=== PATIENT | female | born 1995 | race Asian ===

== ENCOUNTER 2017-04-11 20:05 | Emergency (ER) | payer BC ==
[2017-04-11 21:05] LABS: URINE HCG POC HCG NEGATIVE (Negative)
[2017-04-11 21:08] LABS: BILIRUBIN,URINE NEGATIVE (NEG); GLUCOSE,URINE NEGATIVE (NEG); NITRITE,URINE NEGATIVE (NEG); PROTEIN,URINE 30 mg/dL (NEG-TRACE); UROBILINOGEN,URINE 0.2 mg/dL (0.2 mg/dL)
[2017-04-11 21:14] LABS: CLARITY,URINE HAZY; COLOR,URINE STRAW
[2017-04-11 21:19] LABS: BACTERIA,URINE 0 /HPF (0-FEW); RBC,URINE 20-40 /HPF (0-2); SQUAMOUS EPITHELIAL CELL,UR FEW /LPF; WBC,URINE RARE /HPF (0-4)
[2017-04-11 22:02] LABS: ADD MAN DIFF? NO
[2017-04-11] MEDS ORDERED: HYDROmorphone 2 MG/ML VIAL (22:03)
[2017-04-11 22:04] LABS: BASO % 0 % (0-3); EOS % 0 % (0-3); HEMATOCRIT 36.9 % (36.0-47.0); HEMOGLOBIN 12.1 g/dL (12.0-15.5); LYMPH # 1.9 x10^3/uL (1.0-4.8); LYMPH % 14 % (24-48); MEAN CORPUSCULAR HEMOGLOBIN 27 pg (25-35); MEAN CORPUSCULAR HGB CONC 33 g/dL (31-37); MEAN CORPUSCULAR VOLUME 81 fL (79-100); MONO # 0.7 x10^3/uL (0.0-1.1); MONO % 5 % (0-9); NEUT # 10.6 x10^3uL (1.8-7.7); NEUT % 80 % (31-73); PLATELET COUNT 290 x10^3/uL (140-400); RED BLOOD COUNT 4.54 x10^6/uL (3.50-5.40); WHITE BLOOD COUNT 13.3 x10^3/uL (4.0-11.0)
[2017-04-11] MEDS: IV NORMAL SALINE 1000ML BAG 1,000 ML IV (22:10)
[2017-04-11] MEDS: HYDROmorphone 2 MG/ML VIAL IV (22:10)
[2017-04-11 22:19] LABS: ANION GAP 14 (6-14); BLOOD UREA NITROGEN 13 mg/dL (7-20); BUN/CREATININE RATIO 16 (6-20); CALCIUM 8.6 mg/dL (8.5-10.1); CARBON DIOXIDE 22 mmol/L (21-32); CHLORIDE 103 mmol/L (98-107); CREATININE 0.8 mg/dL (0.6-1.0); GFR 90.5; GLUCOSE 118 mg/dL (70-99); POTASSIUM 3.3 mmol/L (3.5-5.1); SODIUM 139 mmol/L (136-145)
[2017-04-11 22:25] LABS: ALBUMIN 3.9 g/dL (3.4-5.0); ALK PHOS 195 U/L (46-116); ALT (SGPT) 61 U/L (14-59); AST (SGOT) 32 U/L (15-37); LIPASE 106 U/L (73-393); TOTAL BILIRUBIN 0.2 mg/dL (0.2-1.0); TOTAL PROTEIN 7.8 g/dL (6.4-8.2)
[2017-04-11] MEDS: HYDROcodone/APAP 5/325MG 1 TAB TABLET PO (23:56)
[2017-04-11] MEDS: KETOROLAC 30 MG/ML INJ. IV (23:56)
== END 2017-04-12 00:58 | disposition home or self-care (01) ==
LOC: ER 04-12 00:58
DX: N20.0 Calculus of kidney (principal); F41.9 Anxiety disorder, unspecified
CPT/HCPCS: 36415; 74018; 74176; 80053; 81001; 81025; 83690; 85025; 96361; 96374; 96375; 99285-25; J1170; J1885; J7030

== ENCOUNTER 2018-10-21 10:45 | Emergency (ER) | payer BC, OTHER ==
[~2018-10-21] VITALS: Ht 154.9 cm; Wt 57.2 kg
[~2018-10-21 10:45] MED LIST: HYDR-3164 PO
[2018-10-21 11:19] LABS: BILIRUBIN,URINE NEGATIVE (NEG); CLARITY,URINE CLOUDY; COLOR,URINE YELLOW; NITRITE,URINE NEGATIVE (NEG); PH,URINE 6.5; PROTEIN,URINE NEGATIVE (NEG-TRACE)
[2018-10-21 11:25] LABS: SQUAMOUS EPITHELIAL CELL,UR MANY /LPF
[2018-10-21 11:26] LABS: BACTERIA,URINE MODERATE /HPF (0-FEW)
[2018-10-21 11:27] LABS: RBC,URINE OCC /HPF (0-2)
--- NOTE | 2018-10-21 11:38 | PHYS DOC ---
Past Medical History Past Medical History: No Pertinent History Past Surgical History: No Surgical History Alcohol Use: None Drug Use: None Adult General Chief Complaint Chief Complaint: VOMITING IN HPI HPI 23-year-old female presents to ER for complaints of intermittent nausea and vomiting for the past couple of months. Patient states she has taken a home test which has been positive. She reports with this she is 2 para 1 with a 2-year-old son. She denies any abdominal pain, urinary symptoms, or vaginal bleeding/discharge. Patient states LMP 08/15/18. Patient denies any falls or injury. She reports she has had intermittent headache and some cold-like symptoms. She states she felt feverish a couple of times last week but is afebrile currently. She denies any [id number] Tylenol for headache. She reports in the morning over the past couple months she will feel nauseous and as the day progresses her symptoms improved. She denies any diarrhea or recent travel. Review of Systems Review of Systems Constitutional: Denies fever or chills [] Eyes: Denies change in visual acuity, redness, or eye pain [] HENT: Denies nasal congestion or sore throat [] Respiratory: Denies cough or shortness of breath [] Cardiovascular: Denies CP/palpitations GI: Denies abdominal pain, bloody stools or diarrhea. Reports intermittent N/V : Denies dysuria or hematuria. Denies vaginal bleeding/discharge or pelvic pain/pressure Musculoskeletal: Denies back/neck pain or joint pain [] Integument: Denies rash or skin lesions [] Neurologic: Denies headache, focal weakness or sensory changes. Reports BARRIOS and intermittent dizziness Endocrine: Denies polyuria or polydipsia [] All other systems were reviewed and found to be within normal limits, except as documented in this note. Current Medications Current Medications Current Medications Medications (Trade) Dose Ordered Sig/Bennett Start Time Stop Time Status Last Admin Dose Admin Ceftriaxone Sodium (Rocephin) 1 gm 1X ONCE 10/21/18 12:15 10/21/18 12:16 DC 10/21/18 12:21 1 GM Sodium Chloride 1,000 ml @ 1,000 mls/hr 1X ONCE 10/21/18 12:00 10/21/18 12:59 DC 10/21/18 11:35 1,000 MLS/HR Allergies Allergies Allergies Coded Allergies Type Severity Reaction Last Updated Verified No Known Drug Allergies 04/11/17 No Physical Exam Physical Exam Constitutional: Well developed, well nourished, no acute distress, non-toxic appearance. [] HENT: Normocephalic, atraumatic, bilateral ears normal, oropharynx moist- no pharyngeal erythema/swelling, no oral exudates, nose normal. [] Eyes: 3mm PERRLA, EOMI- no eye pain with movements, no nystagmus, conjunctiva normal, no discharge. [] Neck: Normal range of motion, no tenderness/nuchal rigidity, supple, no stridor. [] Cardiovascular: Heart rate regular rhythm, no murmur [] Lungs & Thorax: Bilateral breath sounds clear to auscultation- resp. equal/nonlabored Abdomen: Bowel sounds normal, soft- no distention/rigidity, no tenderness, no masses, no pulsatile masses. [] Skin: Warm, dry, no erythema, no rash. [] Back: No tenderness, no CVA tenderness. [] Extremities: No tenderness, no cyanosis, no clubbing, ROM intact, no edema. [] Neurologic: Alert and oriented X 3, normal motor function, normal sensory function, no focal deficits noted. [] Psychologic: Affect normal, judgement normal, mood normal. [] Current Patient Data Vital Signs Vital Signs Date Time Temp Pulse Resp B/P (MAP) Pulse Ox O2 Delivery O2 Flow Rate FiO2 10/21/18 11:10 98.5 98 14 133/69 (90) 97 Room Air 98.5 Lab Values Laboratory Tests Test 10/21/18 10:50 10/21/18 11:02 10/21/18 11:34 Urine Collection Type Unknown Urine Color Yellow Urine Clarity Cloudy Urine pH 6.5 Urine Specific [place] 1.025 Urine Protein Negative mg/dL (NEG-TRACE) Urine Glucose (UA) 100 mg/dL (NEG) Urine Ketones (Stick) Negative mg/dL (NEG) Urine Blood Negative (NEG) Urine Nitrite Negative (NEG) Urine Bilirubin Negative (NEG) Urine Urobilinogen Dipstick 1.0 mg/dL (0.2 mg/dL) Urine Leukocyte Esterase Moderate (NEG) Urine RBC Occ /HPF (0-2) Urine WBC 11-20 /HPF (0-4) Urine Squamous Epithelial Cells Many /LPF Urine Bacteria Moderate /HPF (0-FEW) Urine Mucus Marked /LPF POC Urine HCG, Qualitative Hcg positive (Negative) White Blood Count 7.8 x10^3/uL (4.0-11.0) Red Blood Count 4.08 x10^6/uL (3.50-5.40) Hemoglobin 12.2 g/dL (12.0-15.5) Hematocrit 35.0 % (36.0-47.0) L Mean Corpuscular Volume 86 fL (79-100) Mean Corpuscular Hemoglobin 30 pg (25-35) Mean Corpuscular Hemoglobin Concent 35 g/dL (31-37) Red Cell Distribution Width 12.9 % (11.5-14.5) Platelet Count 269 x10^3/uL (140-400) Neutrophils (%) (Auto) 70 % (31-73) Lymphocytes (%) (Auto) 24 % (24-48) Monocytes (%) (Auto) 5 % (0-9) Eosinophils (%) (Auto) 1 % (0-3) Basophils (%) (Auto) 1 % (0-3) Neutrophils # (Auto) 5.5 x10^3/uL (1.8-7.7) Lymphocytes # (Auto) 1.8 x10^3/uL (1.0-4.8) Monocytes # (Auto) 0.4 x10^3/uL (0.0-1.1) Eosinophils # (Auto) 0.1 x10^3/uL (0.0-0.7) Basophils # (Auto) 0.0 x10^3/uL (0.0-0.2) Maternal Serum HCG Beta Subunit 247225 mIU/mL (0-5) H Sodium Level 134 mmol/L (136-145) L Potassium Level 3.6 mmol/L (3.5-5.1) Chloride Level 101 mmol/L (98-107) Carbon Dioxide Level 21 mmol/L (21-32) Anion Gap 12 (6-14) Blood Urea Nitrogen 8 mg/dL (7-20) Creatinine 0.5 mg/dL (0.6-1.0) L Estimated GFR (Cockcroft-Gault) 154.3 BUN/Creatinine Ratio 16 (6-20) Glucose Level 141 mg/dL (70-99) H Calcium Level 9.2 mg/dL (8.5-10.1) Magnesium Level 1.8 mg/dL (1.8-2.4) Total Bilirubin 0.3 mg/dL (0.2-1.0) Aspartate Amino Transferase (AST) 23 U/L (15-37) Alanine Aminotransferase (ALT) 32 U/L (14-59) Alkaline Phosphatase 106 U/L (46-116) Total Protein 7.1 g/dL (6.4-8.2) Albumin 3.7 g/dL (3.4-5.0) Albumin/Globulin Ratio 1.1 (1.0-1.7) Lipase 72 U/L (73-393) L Laboratory Tests 10/21/18 11:34 Laboratory Tests 10/21/18 11:34 EKG EKG [] Radiology/Procedures Radiology/Procedures [] Course & Med Decision Making Course & Med Decision Making Pertinent Labs reviewed. (See chart for details) Pt was he waited in the ER for complaints of intermittent dizziness, headache, and nausea and vomiting since positive test 2 months ago. Patient states she has had no care and no blood work for confirmation of . Labs were obtained and UA. Labs were unremarkable beta hCG Quant was 136,056. UA showed moderate leukocytes negative blood and 100 glucose with micro-showing 11-20 WBCs. Pt had IV Rocephin 1 g given while in the ER for her UTI. Test results were discussed with patient as well as need for establishing an MEETING MANAGER for care and further care during her . Patient was provided with IV fluids and on reexam reports her headache/dizziness subsided and she has had no further nausea. Patient has had no reported episodes of vomiting. heart tones 170s. Patient denied abdominal pain, lower back pain, urinary symptoms, or vaginal bleeding/charge. Discussed with improved symptoms she would be discharged home with prescription for Keflex for further treatment of her urinary tract infection. Patient requested nausea medicine so will provide Zofran ODT prescription. Will also provide MEETING MANAGER referral information on discharge paperwork. Patient encouraged to increase fluid intake daily and Tylenol when necessary. Patient's vital signs have been stable she remains nontoxic in appearance and in no visible distress at time of discharge discussion. Education provided on signs and symptoms to return to ER. Discharge instructions were discussed. Patient to follow-up with primary care physician and/or MEETING MANAGER with any concerns. Dragon Disclaimer Dragon Disclaimer This electronic medical record was generated, in whole or in part, using a voice recognition dictation system. Departure Departure Impression: Primary Impression: Additional Impressions: Vomiting during Headache Urinary tract infection Disposition: 01 HOME, SELF-CARE Referrals: NO PCP (PCP) MARIA ALEJANDRA CARRILLO MD Patient Instructions: ABCs of , General Headache Without Cause, Nausea and Vomiting, Urinary Tract Infection Additional Instructions: Drink plenty of fluids daily. [id number] vitamins as directed on container. It is important for you to establish a MEETING MANAGER doctor for care and further care during your . Tylenol as needed for pain as directed on container. Scripts Ondansetron (ONDANSETRON ODT) 4 Mg Tab.rapdis 1 TAB PO PRN Q6-8HRS PRN for NAUSEA, #8 TAB 0 Refills Prov: MARYANNE CHAVEZ APRN 10/21/18 Cephalexin (KEFLEX) 500 Mg Capsule 1 CAP PO BID, #14 CAP 0 Refills Prov: MARYANNE CHAVEZ APRN 10/21/18 Problem Qualifiers MARYANNE CHAVEZ APRN Oct 21, 2018 11:38
[2018-10-21 11:47] LABS: BASO % 1 % (0-3); EOS # 0.1 x10^3/uL (0.0-0.7); EOS % 1 % (0-3); HEMOGLOBIN 12.2 g/dL (12.0-15.5); LYMPH # 1.8 x10^3/uL (1.0-4.8); LYMPH % 24 % (24-48); MEAN CORPUSCULAR HEMOGLOBIN 30 pg (25-35); MEAN CORPUSCULAR HGB CONC 35 g/dL (31-37); MEAN CORPUSCULAR VOLUME 86 fL (79-100); MONO # 0.4 x10^3/uL (0.0-1.1); MONO % 5 % (0-9); NEUT # 5.5 x10^3/uL (1.8-7.7); NEUT % 70 % (31-73); PLATELET COUNT 269 x10^3/uL (140-400); RED BLOOD COUNT 4.08 x10^6/uL (3.50-5.40); RED CELL DISTRIBUTION WIDTH 12.9 % (11.5-14.5); WHITE BLOOD COUNT 7.8 x10^3/uL (4.0-11.0)
[2018-10-21 11:56] LABS: CALCIUM 9.2 mg/dL (8.5-10.1); CREATININE 0.5 mg/dL (0.6-1.0); GFR 154.3; POTASSIUM 3.6 mmol/L (3.5-5.1)
[2018-10-21] MEDS ORDERED: IV NORMAL SALINE 1000ML BAG 1,000 ML IV ONE (12:00)
[2018-10-21 12:02] LABS: ALBUMIN 3.7 g/dL (3.4-5.0); ALBUMIN/GLOBULIN RATIO 1.1 (1.0-1.7); MAGNESIUM 1.8 mg/dL (1.8-2.4); TOTAL BILIRUBIN 0.3 mg/dL (0.2-1.0); TOTAL PROTEIN 7.1 g/dL (6.4-8.2)
[2018-10-21] MEDS ORDERED: cefTRIAXone IV Push 1 GM VIAL. IVP ONE (12:15)
[2018-10-21 12:58] VITALS: BP 98/75
[2018-10-21] MEDS ORDERED: ONDA4TAB12 PO (13:01)
[2018-10-21] MEDS ORDERED: CEPH-264 PO (13:01)
== END 2018-10-21 13:09 | disposition home or self-care (01) ==
LOC: ER 10:45
DX: O23.41 Unspecified infection of urinary tract in pregnancy, first trimester (principal); O21.9 Vomiting of pregnancy, unspecified; R51 Headache; Z3A.00 Weeks of gestation of pregnancy not specified
CPT/HCPCS: 36415; 80053; 81001; 81025; 83690; 83735; 84702; 85025; 87086; 96361; 96374; 99284; J0696; J7030